=== PATIENT | male | born 1980 | race Caucasian/White ===

== ENCOUNTER 2017-09-15 17:14 | Inpatient (IN) | payer OTHER ==
[~2017-09-15] VITALS: Ht 180.3 cm; Wt 71.2 kg
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
--- NOTE | 2017-09-15 17:35 | NUR ---
NEW IV STARTED ON LAC, 18G. BLOOD DRAWN AND SENT TO LAB.
[2017-09-15 17:42] LABS: BASOPHILS % (AUTO) 0.2 % (0.0-2.0); EOSINOPHILS % (AUTO) 0.3 % (0.0-6.0); HEMATOCRIT 38 % (39-51); HEMOGLOBIN 13.3 g/dL (13.5-17.5); LYMPHOCYTES % (AUTO) 10.6 % (20.0-44.0); MEAN CORPUSCULAR HGB CONC 35 g/dl (31.0-36.0); MEAN CORPUSCULAR VOLUME 90 fL (80-96); MONOCYTES # (AUTO) 1.1 /CMM (0.1-1.30); MONOCYTES % (AUTO) 12.4 % (2.0-12.0); NEUTROPHILS # (AUTO) 6.9 /CMM (1.8-8.9); NEUTROPHILS % (AUTO) 76.5 % (43.0-81.0); PLATELET COUNT (AUTO) 243 /CMM (150-450); RDW COEFFICIENT OF VARIATION 12.5 (11.5-15.0); RED BLOOD CELL COUNT(AUTO) 4.28 MIL/uL (4.5-6.0)
[2017-09-15 17:55] LABS: CARBON DIOXIDE 29 mmol/L (21-32); CHLORIDE 98 mmol/L (98-107); CREATININE 0.8 mg/dL (0.6-1.3); GLUCOSE 100 mg/dL (74-106); POTASSIUM 3.2 mmol/L (3.5-5.1); SODIUM SERUM 136 mmol/L (136-145); UREA NITROGEN, BLOOD 15 mg/dL (7-18)
[2017-09-15 18:00] LABS: ALANINE AMINOTRANSFERASE 177 U/L (12-78); ALBUMIN 3.7 g/dL (3.4-5.0); ALCOHOL, BLOOD < 3 mg/dL (0-0); ALKALINE PHOSPHATASE 61 U/L (46-116); ASPARTATE AMINOTRANSFERASE 385 U/L (15-37); BILIRUBIN,DIRECT 0.3 mg/dL (0.0-0.2); TOTAL PROTEIN, SERUM 7.3 g/dL (6.4-8.2)
[2017-09-15 18:29] LABS: CREATINE KINASE MB 101.5 ng/mL (0-3.6)
[2017-09-15] MEDS ORDERED: PARO20TA7 PO (18:44)
[2017-09-15] MEDS ORDERED: ATOR80TA PO (18:44)
[2017-09-15] MEDS ORDERED: LISI1TAB11 PO (18:44)
[2017-09-15] MEDS: POTASSIUM CL. PREMIX PERIPHER. 50 ML IV SCH ×3 (18:50→22:49)
[2017-09-15] MEDS ORDERED: POTASSIUM CL. PREMIX PERIPHER. 50 ML ONE ×2 (18:58→19:34)
[2017-09-15] MEDS ORDERED: IV NS 0.9% 1,000 ML BAG IV ONE ×2 (19:00→19:30)
--- NOTE | 2017-09-15 19:02 | NUR ---
CALLED [employer], BARK PEELER WAS PAGED.
--- NOTE | 2017-09-15 19:17 | NUR ---
REPORT GIVEN TO ABIMBOLA YANG FOR NAMRATA.
--- NOTE | 2017-09-15 19:53 | NUR ---
TELE [id number]
[2017-09-15] MEDS ORDERED: ACETAMINOPHEN 325 MG TABLET PO PRN (20:00)
[2017-09-15] MEDS ORDERED: ONDANSETRON HCL/PF 4 MG/2 ML VIAL IVP PRN (20:00)
[2017-09-15] MEDS ORDERED: HYDROCODONE/APAP 5/325MG 1 EACH TABLET PO PRN (20:00)
--- NOTE | 2017-09-15 20:00 | NUR ---
SECOND OF FIVE IV POTASSIUM STARTED AND INFUSING ON ADMISSION. WILL CONTINUE TO MONITOR PT. Addendum: 09/15/17 at 2039 by JACKSON SECOND OF FOURTH IV POTASSIUM BAG STARTED AND INFUSING ON ADMISSION.
--- NOTE | 2017-09-15 20:15 | NUR ---
PT UNABLE TO GIVE URINE AT THIS TIME. PT REFUSED PALACIO CATHETER. MADE AWARE. PER , PT OKAY TO BE ADMITTED.
--- NOTE | 2017-09-15 20:23 | NUR ---
REPORT GIVEN TO SERENA SENIOR FOR NAMRATA.
[2017-09-15] MEDS ORDERED: POTASSIUM CL. PREMIX PERIPHER. 100 ML ONE (20:45)
[2017-09-15 21:00] VITALS: BP 136/82
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
[2017-09-15] MEDS ORDERED: Medication Not On Formulary EA (Atorvastatin Calcium (Lipitor) 80 MG) PO SCH (22:00)
[2017-09-15] MEDS: IV NS 0.9% 1,000 ML IV PRN (23:59)
[2017-09-16] VITALS (7 sets, daily range): BP systolic 117–122; BP diastolic 59–72
--- NOTE | 2017-09-16 04:44 | NUR ---
END OF SHIFT NOTES: MR. CAPELLAN WHEN ADMITTED WAS LETHARGIC, HAVING DIFFICULTY STAYING AWAKE. THIS HAS RESOLVED SINCE BEING ADMITTED, HE IS AWAKE AND ALERT ANS SMILING, SPEECH CLEAR, LARGE SNACK CONSUMED, VOIDED 300MML DARK YELLOW URINE, USING THE URINAL. ASKING QUESTIONS ABOUT WHAT IS BEING DONE FOR HIM, HE IS VERY GRATEFUL. HIS GRANDMOTHER KIANA GASTELUM CALLED TO CHECK IN ON HIM LAST NIGHT, I LET HIM KNOW THIS, WHICH MADE HIM SMILE, STATED HE WILL CALL HER LATER USING HIS CELL PHONE WHICH I AM NOW CHARGING. CALL LIGHT REVIEW WITH HIM. BED ALARM SET.
[2017-09-16 07:18] LABS: BASOPHILS % (AUTO) 0.5 % (0.0-2.0); EOSINOPHILS % (AUTO) 2.2 % (0.0-6.0); HEMATOCRIT 33 % (39-51); HEMOGLOBIN 11.6 g/dL (13.5-17.5); LYMPHOCYTES # (AUTO) 0.9 /CMM (0.8-4.8); LYMPHOCYTES % (AUTO) 11.4 % (20.0-44.0); MEAN CORPUSCULAR HGB CONC 35 g/dl (31.0-36.0); MEAN CORPUSCULAR VOLUME 91 fL (80-96); MONOCYTES # (AUTO) 0.8 /CMM (0.1-1.30); MONOCYTES % (AUTO) 10.4 % (2.0-12.0); NEUTROPHILS # (AUTO) 5.8 /CMM (1.8-8.9); NEUTROPHILS % (AUTO) 75.5 % (43.0-81.0); PLATELET COUNT (AUTO) 185 /CMM (150-450); RDW COEFFICIENT OF VARIATION 13.2 (11.5-15.0); RED BLOOD CELL COUNT(AUTO) 3.69 MIL/uL (4.5-6.0); WHITE BLOOD COUNT (AUTO) 7.7 K/uL (4.3-11.0)
[2017-09-16 07:25] LABS: ALBUMIN 2.6 g/dL (3.4-5.0); BILIRUBIN,TOTAL 0.6 mg/dL (0.2-1.0); CALCIUM, SERUM 7.9 mg/dL (8.5-10.1); CREATININE 0.5 mg/dL (0.6-1.3); PHOSPHORUS 2.1 mg/dL (2.5-4.9); POTASSIUM 3.3 mmol/L (3.5-5.1); TOTAL PROTEIN, SERUM 5.3 g/dL (6.4-8.2)
[2017-09-16 07:26] LABS: INR 0.96 (0.87-1.13)
[2017-09-16 07:33] LABS: CREATINE KINASE MB 25.7 ng/mL (0-3.6); THYROID STIMULATING HORMONE 0.636 uIU/mL (0.358-3.74)
--- NOTE | 2017-09-16 07:39 | NUR ---
MS RN OPENING NOTES RECEIVED PATIENT IN STABLE CONDITION. IN NO APPARENT DISTRESS. BEDSIDE RAILS ARE UPX2. BED IS LOCKED AND LOWERED. CALL LIGHT IS WITHIN REACH. IV LINE IS INTACT AND PATENT. WILL CONTINUE TO MONITOR.
[2017-09-16] MEDS: PAROXETINE HCL 20 MG TABLET PO SCH (08:37)
[2017-09-16] MEDS: LISINOPRIL (20MG) 20 MG TABLET PO SCH (08:37)
[2017-09-16] MEDS: PANTOPRAZOLE 40 MG TABLET.DR PO SCH (08:38)
[2017-09-16] MEDS ORDERED: HYDROCHLOROTHIAZIDE 25 MG TABLET PO SCH (09:00)
[2017-09-16] MEDS: IV NS 0.9% 1,000 ML IV PRN (10:06)
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
[2017-09-16] MEDS ORDERED: POTASSIUM CHLORIDE 20 MEQ TAB.PRT.SR PO ONE (11:30)
--- NOTE | 2017-09-16 14:33 | NUR ---
ATTEMPTED TO CALL GRANDMOTHER. GRANDFATHER ANSWERED THE PHONE AND SAID GRANDMOTHER WENT SHOPPING FOR SOME GROCERIES. CALLED AGAIN 30 MINUTES AFTER AND THE LINE IS BUSY. WILL TRY CALLING HER AGAIN LATER TODAY. Addendum: 09/16/17 at 1745 by JAMES PORRAS RN SPOKE TO GRANDMOTHER AND UPDATED HER ABOUT HER GRANDSONS CONDITION.
[2017-09-16 14:42] LABS: APPEARANCE,URINE CLEAR (CLEAR); BILIRUBIN,URINE NEGATIVE (NEGATIVE); BLOOD, URINE NEGATIVE Ery/uL (NEGATIVE); COLOR,URINE YELLOW (YELLOW); KETONES,URINE NEGATIVE (NEGATIVE); LEUKOCYTE ESTERASE ,URINE NEGATIVE (NEGATIVE); NITRITE, URINE NEGATIVE (NEGATIVE); PH,URINE 6.5 (5.0-8.0); PROTEIN,URINE NEGATIVE (NEGATIVE); UGLUCOSE NEGATIVE (NEGATIVE)
[2017-09-16] MEDS ORDERED: K PHOS NEUTRAL 250 MG TABLET PO ONE (16:00)
--- NOTE | 2017-09-16 18:53 | NUR ---
MS RN CLOSING NOTES PATIENT IS STABLE. IN NO APPARENT DISTRESS. BEDSIDE RAILS ARE UPX2. BED IS LOCKED AND LOWERED. CALL LIGHT IS WITHIN REACH. ALL NEEDS WERE MET. IV IS INTACT AND PATENT. WILL ENDORSE CARE TO DIETETIC TECHNICIAN REGISTERED NURSE FOR NAMRATA.
--- NOTE | 2017-09-16 19:35 | NUR ---
MS RN NOTES RECEIVED ON BED A/O X4,WATCHING TV PROGRAM,SALINE LOCK LFA INTACT AND PATENT.APPEARS WEAK.ENCOURAGED TO ASK FOR HELP FOR ASSISTANCE.FALL PRECAUTION OBSERVED,BED ON LOWEST POSITION AND LOCKED.CALL LIGHT IN REACH,NEEDS ANTICIPATED.
--- NOTE | 2017-09-16 23:00 | NUR ---
MS RN NOTES SOUND ASLEEP,AROUSABLE TO VERBAL STIMULI,NO FALL ,NO INJURY.COMMUNICATE WITH CLEAR WORDS. STRONG ICE HANDLER ON BOTH HANDS.IVF INFUSING WELL ON LEFT AC.IN NO ACUTE DISTRESS.WILL ENDORSE TO DAY NURSE FOR NAMRATA.
[2017-09-17] MEDS: IV NS 0.9% 1,000 ML IV PRN (01:58)
--- NOTE | 2017-09-17 07:05 | NUR ---
RN NOTES PT IS SITTING UP IN BED, AWAKE AND ALERT. PT ON RA, RESPIRATIONS ARE EVEN AND UNLABORED. IV ON LAC INTACT AND RUNNING NS @ 150ML/HR. NO SIGNS OF DISTRESS NOTED. SAFETY MEASURES ARE IN PLACE, CALL LIGHT IS IN REACH. WILL CONTINUE TO MONITOR.
[2017-09-17 08:00] VITALS: BP 114/72
[2017-09-17] MEDS: PAROXETINE HCL 20 MG TABLET PO SCH (08:17)
[2017-09-17] MEDS: PANTOPRAZOLE 40 MG TABLET.DR PO SCH (08:17)
[2017-09-17] MEDS: LISINOPRIL (20MG) 20 MG TABLET PO SCH (08:17)
[2017-09-17 08:19] LABS: BASOPHILS % (AUTO) 0.7 % (0.0-2.0); EOSINOPHILS % (AUTO) 3.9 % (0.0-6.0); HEMATOCRIT 34 % (39-51); LYMPHOCYTES % (AUTO) 15.5 % (20.0-44.0); MEAN CORPUSCULAR HGB CONC 35 g/dl (31.0-36.0); MEAN CORPUSCULAR VOLUME 91 fL (80-96); MONOCYTES # (AUTO) 0.9 /CMM (0.1-1.30); NEUTROPHILS # (AUTO) 4.4 /CMM (1.8-8.9); NEUTROPHILS % (AUTO) 65.9 % (43.0-81.0); PLATELET COUNT (AUTO) 206 /CMM (150-450); RDW COEFFICIENT OF VARIATION 12.6 (11.5-15.0); WHITE BLOOD COUNT (AUTO) 6.6 K/uL (4.3-11.0)
[2017-09-17 08:28] LABS: CALCIUM, SERUM 8.2 mg/dL (8.5-10.1); CREATININE 0.5 mg/dL (0.6-1.3); PHOSPHORUS 3.1 mg/dL (2.5-4.9); POTASSIUM 3.5 mmol/L (3.5-5.1)
[2017-09-17 09:06] LABS: CREATINE KINASE MB 4.9 ng/mL (0-3.6)
--- NOTE | 2017-09-17 13:42 | NUR ---
SIRENA called pt's grandmother Kandi Wang to inform her that pt. is medically cleared and will be discharged today. Kandi informed SIRENA that she has arranged for a Lyft to miner pick pt. from the hospital at 7PM to go to [place]. Pt. is to go to [place] and go standby on his flight which is to depart tomorrow. Per grandmother pt. to stay overnight at the airport. Kandi requested that SIRENA write a letter stating the pt. has [place]'s disease and place her emergency contact number on the letter. SIRENA confirmed with Kandi, she will do that and give the letter to the pt. Med Surg3 ISA Patel and pt's TREY Molina were notified of the discharge plan. Addendum: 09/17/17 at 1520 by ROXI PACK SIRENA also faxed verification of admission letter for [facility] with MARIA T Saxena's signature and faxed it to . SIRENA contacted pt' s grandmother Kandi and updated her about the letter.
[2017-09-17 16:00] VITALS: BP 119/76
== END 2017-09-17 18:50 | disposition home or self-care (01) | DRG 351 ==
LOC: ER 17:17 → TELE 19:59 → MED 09-16 09:02
PROVIDERS: ADMIT Nurse Practitioner Acute Care; ATTEND Nurse Practitioner Acute Care
PROC: 0H9NXZZ Drainage of Left Foot Skin, External Approach (ICD-10-PCS; principal; 2017-09-16)
DX: M62.82 Rhabdomyolysis (principal); E44.0 Moderate protein-calorie malnutrition; G10 Huntington's disease; E87.6 Hypokalemia; L56.8 Other specified acute skin changes due to ultraviolet radiation; F32.9 Major depressive disorder, single episode, unspecified; I10 Essential (primary) hypertension; Z79.899 Other long term (current) drug therapy; E78.5 Hyperlipidemia, unspecified; D64.9 Anemia, unspecified; S90.425A Blister (nonthermal), left lesser toe(s), initial encounter; X58.XXXA Exposure to other specified factors, initial encounter; Y92.9 Unspecified place or not applicable; R23.4 Changes in skin texture; Z82.0 Family history of epilepsy and other diseases of the nervous system
CPT/HCPCS: 36415; 71045-TC; 76705-TC; 80048-TC; 80053-TC; 80061-TC; 80076-TC; 80305; 81000-TC; 82550-TC; 82553-TC; 82962-TC; 83735-TC; 84100-TC; 84443-TC; 84484-TC; 85025-TC; 85610-TC; 87081-TC; 87086-TC; 97116-TC; 97530-TC; A4606; A6402; G0480; J3480; J7030; Z7610